=== PATIENT | female | born 1945 | race Two or more races ===

== ENCOUNTER 2018-03-02 14:32 | Outpatient (CLI) | payer OTHER | END 2018-03-02 14:48 | disposition home or self-care (01) | LOC: MAMO-SONO 14:32 | DX: Z12.31 Encounter for screening mammogram for malignant neoplasm of breast (principal); Z87.898 Personal history of other specified conditions; N64.0 Fissure and fistula of nipple ==

== ENCOUNTER 2019-03-20 10:47 | Outpatient (CLI) | payer OTHER | END 2019-03-20 10:50 | disposition home or self-care (01) | LOC: MAMO-SONO 10:47 | DX: Z12.31 Encounter for screening mammogram for malignant neoplasm of breast (principal); N64.4 Mastodynia; Z87.898 Personal history of other specified conditions ==

== ENCOUNTER → 2019-03-20 | Outpatient (CLI) | payer OTHER | END | disposition home or self-care (01) | LOC: NUCLEAR 10:00 | DX: M81.0 Age-related osteoporosis without current pathological fracture (principal) ==